=== PATIENT | male | born 1980 | race Caucasian/White ===

== ENCOUNTER 2016-08-20 21:14 | Emergency (ER) | payer SELFPAY ==
[~2016-08-20 21:14] MED LIST: ADVIL200 M1 PO; BACTRIM DS TABL1 TAB PO; DARVOCET-N 1001 TAB PO; HYDROCODONE/APA1 TAB PO; IBUPROFEN200 MG; IRON; KEFLEX500 MG PO; MOTRIN200 MG/TA1 PO; MOTRIN600 MG PO; NO HOME MEDS; NORCO 10/325 TA1 TAB PO; NORCO 5/325 TAB1 TAB PO; PEN-VEE K500 MG PO; PERCOCET; PERCOCET 5/3251 TAB PO; STOOL SOFTENER; TYLENOL325 M1 PO; VICODIN 5/500 T1 TAB PO
== END 2016-08-20 22:00 | disposition left against medical advice (07) ==
LOC: EDMED 21:14
DX: M79.672 Pain in left foot (principal); Z53.21 Procedure and treatment not carried out due to patient leaving prior to being seen by health care provider